=== PATIENT | male | born 1945 | race Caucasian/White ===

== ENCOUNTER → 2024-05-20 | Outpatient (CLI) | payer MEDICARE, OTHER, SELFPAY ==
[2024-05-20 11:34] LABS: Basophils % (Auto) 0 % (0-2.5); Eosinophils # (Auto) 0.2 Thou/mm3 (0.0-0.5); Eosinophils % (Auto) 3 % (0-10); Hematocrit 43.7 % (41.0-53.0); Hemoglobin 14.9 g/dL (13.5-16.0); Immature Granulocytes % (Auto) 0 % (0-0); Immature Granulocytes Auto 0.03 Thou/mm3 (0.00-0.00); Lymphocytes # (Auto) 1.9 Thou/mm3 (1.0-4.8); Lymphocytes % (Auto) 21 % (10-50); Mean Corpuscular HGB Conc 34.1 g/dl (31.0-37.0); Mean Corpuscular Hemoglobin 32.5 pg (25.0-35.0); Mean Corpuscular Volume 95 fL (80-100); Monocytes # (Auto) 0.8 Thou/mm3 (0.0-0.8); Monocytes % (Auto) 9 % (0-12); Neutrophils % (Auto) 67 % (37-80); Nucleated Red Blood Cell % 0 /100 WBC (0); Platelet Count 252 Thou/mm3 (140-440); RDW Standard Deviation 50.7 fL (35.1-43.9); Red Blood Count 4.59 Miln/mm3 (4.50-5.90)
[2024-05-20 11:44] LABS: Partial Thromboplastin Time 26.2 Seconds (22.0-36.0); Prothrombin Time 10.9 Seconds (9.0-12.2)
[2024-05-20 11:55] LABS: Alanine Aminotransferase 18 U/L (10-49); Albumin, Serum 4.3 gm/dL (3.4-4.8); Albumin/Globulin Ratio 1.8 (1.2-2.2); Alkaline Phosphatase 77 U/L (46-116); Anion Gap 6 (7-16); Aspartate Amino Transferase 19 U/L (0-34); BUN/Creatinine Ratio 16 Ratio (12-20); Bilirubin,Total 0.6 mg/dL (0.3-1.2); Blood Urea Nitrogen 22 mg/dL (9-23); Calcium 9.8 mg/dL (8.3-10.6); Calcium (Corrected) 9.8 mg/dL (8.5-10.1); Chloride 108 mMol/L (98-107); Creatinine (Component) 1.4 mg/dL (0.6-1.3); Globulin 2.4 gm/dL (2.3-3.5); Glucose 105 mg/dL (74-106); Osmolality,Calculated 278 (275-295); Potassium 4.8 mMol/L (3.4-5.1); Sodium 138 mMol/L (136-145); Total Protein 6.7 gm/dL (5.7-8.2); eGFR 52 See Note
== END | disposition home or self-care (01) ==
PROVIDERS: PCP Family Medicine; Referring Provider Internal Medicine Cardiovascular Disease; Visit Provider Physician Assistant
DX: Z01.818 Encounter for other preprocedural examination (principal); E78.00 Pure hypercholesterolemia, unspecified; R20.0 Anesthesia of skin; Z79.02 Long term (current) use of antithrombotics/antiplatelets
CPT/HCPCS: 36415; 80053; 85025; 85610; 85730

== ENCOUNTER → 2024-06-14 | Outpatient (CLI) | payer MEDICARE, OTHER, SELFPAY ==
[2024-06-14 09:01] LABS: Quantiferon-TB* See Sep Rpt
== END | disposition home or self-care (01) ==
LOC: COPL 08:11
PROVIDERS: PCP Internal Medicine; Referring Provider Physician Assistant; Visit Provider Physician Assistant
DX: Z20.1 Contact with and (suspected) exposure to tuberculosis (principal)
CPT/HCPCS: 86480

== ENCOUNTER → 2024-09-14 | Outpatient (CLI) | payer MEDICARE, OTHER, SELFPAY ==
--- NOTE | 2024-09-14 | XR_ITS ---
Examination: Lumbar spine, 5 views Technique: Lumbar spine AP, lateral, coned lateral lower lumbar spine, bilateral obliques 5 views Exam date and time: September 14, 2024 1206 hours INDICATIONS: Patient fell out of bed 2 weeks ago with injury to the lower back, lower back pain. FINDINGS: No acute lumbar fracture Advanced disc narrowing at the lower 3 lumbar levels Prominent lumbar spondylosis IMPRESSION: No acute lumbar fracture
--- NOTE | 2024-09-14 | XR_ITS ---
Examination: Thoracic spine 3 views Technique one AP lateral coned lateral upper dorsal spine 3 views Exam date and time: September 14, 2024 1207 hours INDICATIONS: Patient fell 2 weeks ago with injury to the back, back pain FINDINGS: Severe osteopenia No acute thoracic fracture Moderate thoracic spondylosis Moderate diffuse thoracic disc narrowing IMPRESSION: No acute thoracic fracture
--- NOTE | 2024-09-14 | XR_ITS ---
EXAMINATION: Cervical spine, 5 views Technique: Cervical spine AP, AP odontoid, lateral, bilateral obliques, 5 views Exam date and time: September 14, 2024 1159 hours Comparison June 14, 2018 INDICATIONS: Patient fell out of bed 2 weeks ago with injury to the neck, neck pain FINDINGS: Adequate alignment cervical vertebral bodies. No cervical fracture Prominent cervical spondylosis Cervical fusion C5-C6 Advanced degenerative disc disease C6-C7 Mild to moderate diffuse neural foraminal stenosis C3-C7 Soft tissue vascular carotid calcification IMPRESSION: No cervical fracture Advanced degenerative disc disease C6-C7
== END | disposition home or self-care (01) ==
PROVIDERS: PCP Family Medicine; Referring Provider Nurse Practitioner Family; Visit Provider Nurse Practitioner Family
DX: M50.323 Other cervical disc degeneration at C6-C7 level (principal); M48.061 Spinal stenosis, lumbar region without neurogenic claudication; M47.816 Spondylosis without myelopathy or radiculopathy, lumbar region; S29.9XXA Unspecified injury of thorax, initial encounter; S39.92XA Unspecified injury of lower back, initial encounter; S19.9XXA Unspecified injury of neck, initial encounter; W19.XXXA Unspecified fall, initial encounter
CPT/HCPCS: 72050; 72072; 72110

== ENCOUNTER → 2024-12-28 | Outpatient (CLI) | payer MEDICARE, OTHER, SELFPAY ==
[2024-12-28 11:12] LABS: Collection Type, Urine Clean Catch
[2024-12-28 12:11] LABS: Basophils % (Auto) 1 % (0-2.5); Eosinophils # (Auto) 0.5 Thou/mm3 (0.0-0.5); Eosinophils % (Auto) 6 % (0-10); Hematocrit 44.2 % (41.0-53.0); Hemoglobin 15.2 g/dL (13.5-16.0); Immature Granulocytes % (Auto) 0 % (0-0); Immature Granulocytes Auto 0.01 Thou/mm3 (0.00-0.00); Lymphocytes # (Auto) 1.8 Thou/mm3 (1.0-4.8); Lymphocytes % (Auto) 24 % (10-50); Mean Corpuscular HGB Conc 34.4 g/dl (31.0-37.0); Mean Corpuscular Hemoglobin 32.4 pg (25.0-35.0); Mean Corpuscular Volume 94 fL (80-100); Monocytes # (Auto) 0.6 Thou/mm3 (0.0-0.8); Monocytes % (Auto) 9 % (0-12); Neutrophils # (Auto) 4.4 Thou/mm3 (1.8-7.7); Neutrophils % (Auto) 60 % (37-80); Nucleated Red Blood Cell % 0 /100 WBC (0); Platelet Count 213 Thou/mm3 (140-440); RDW Standard Deviation 46.5 fL (35.1-43.9); Red Blood Count 4.69 Miln/mm3 (4.50-5.90); White Blood Count 7.4 Thou/mm3 (3.8-10.6)
[2024-12-28 12:18] LABS: Bilirubin,Urine Negative (Negative); Blood,Urine Trace (Negative); Clarity,Urine Clear (Clear/Hazy); Color,Urine Lt-Yellow (Lt Yel-Yel); Culture Indicated,Urine Not Indicated; Glucose, Urine Negative (Negative); Hyaline Casts,Urine < 1 /hpf (0-1); Ketones,Urine Negative (Negative); Leukocyte Esterase,Urine Negative (Negative); Nitrite,Urine Negative (Negative); Protein,Urine Trace (Neg - Trace); RBC,Urine 1 /hpf (0-3); Specific Gravity,Urine 1.024 (1.001-1.035); Squamous Epithelial Cell,Urine < 1 /hpf (0-5); Urobilinogen,Urine Negative mg/dL (0.0-1.0); WBC,Urine 1 /hpf (0-5)
[2024-12-28 12:25] LABS: Alanine Aminotransferase 12 U/L (10-49); Albumin, Serum 4.1 gm/dL (3.4-4.8); Albumin/Globulin Ratio 1.7 (1.2-2.2); Alkaline Phosphatase 83 U/L (46-116); Anion Gap 5 (7-16); Aspartate Amino Transferase 21 U/L (0-34); BUN/Creatinine Ratio 9 Ratio (12-20); Bilirubin,Total 0.5 mg/dL (0.3-1.2); Blood Urea Nitrogen 12 mg/dL (9-23); Calcium 8.9 mg/dL (8.3-10.6); Calcium (Corrected) 8.9 mg/dL (8.5-10.1); Carbon Dioxide 27.4 mMol/L (20.0-31.0); Cardiac Risk Estimate 4.2 RATIO (4.0-6.7); Chloride 108 mMol/L (98-107); Cholesterol 218 mg/dL (132-200); Creatinine (Component) 1.3 mg/dL (0.6-1.3); Globulin 2.4 gm/dL (2.3-3.5); Glucose 114 mg/dL (74-106); HDL Cholesterol 52 mg/dL (40-60); LDL Cholesterol,Calculated 125 mg/dL (0-130); Osmolality,Calculated 280 (275-295); Potassium 4.4 mMol/L (3.4-5.1); Sodium 140 mMol/L (136-145); Total Protein 6.5 gm/dL (5.7-8.2); Triglycerides 203 mg/dL (30-150); eGFR 56 See Note
[2024-12-28 12:27] LABS: Vitamin B12 292 pg/mL (211-911); Vitamin D 25 Hydroxy Total 22.3 ng/mL (7.3-40.2)
== END | disposition home or self-care (01) ==
LOC: COPL 10:37
PROVIDERS: PCP Physician Assistant; Referring Provider Physician Assistant; Visit Provider Physician Assistant
DX: E03.9 Hypothyroidism, unspecified (principal); E55.9 Vitamin D deficiency, unspecified; E78.5 Hyperlipidemia, unspecified; I10 Essential (primary) hypertension
CPT/HCPCS: 36415; 80053; 80061; 81001; 82306; 82607; 84153; 84443; 85025

== ENCOUNTER 2025-03-26 13:07 | Inpatient (IN) | payer MEDICARE, OTHER, SELFPAY ==
[2025-03-26] VITALS (7 sets, daily range): BP systolic 153–183; BP diastolic 74–91; PULSE 60–86; RESP 13–19; TEMP 36.6–37; O2SAT 95–99; BMI 34.9; BMI 35.2
--- NOTE | 2025-03-26 13:38 | XR_ITS ---
Examination: CT brain head without contrast. 2-D sagittal coronal reconstructions Date and time of exam:March 26, 2025, 1345 hrs. Indications: Stroke alert, onset focal neurologic deficit today. CTDI: vol (mGy):58.6. DLP: (mGycm):1229. Technique: Multiple CT axial sections of the brain have been obtained, 5 mm slice thickness. Contrast has not been administered. 2-D sagittal, coronal reconstructions have been obtained Low dose protocols were performed. One or more of the following dose reduction techniques were used; automated exposure control, adjustment of the mA and/or KV according to patient size, use of iterative reconstruction technique. Findings: No significant ventricular enlargement. Intra-axial or extra-axial hemorrhage density is not seen. No mass effect or midline shift Basal cisterns are not remarkable. Fourth ventricle is midline. Cranial vault intact. Impression: Negative for acute hemorrhage, mass effect or midline shift
--- NOTE | 2025-03-26 13:39 | XR_ITS ---
Examination: AP chest single view Technique one AP portable semiupright chest single view Date and time: March 26, 2025, 1405 hrs., Comparison October 26, 2023. Indications: Stroke alert today Findings: Moderate enlargement left ventricle. Moderate vascular congestion. No aspiration pneumonia. Moderate osteopenia. Impression: Negative for aspiration pneumonia
--- NOTE | 2025-03-26 13:39 | EKG_ITS ---
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1945 Requested By: Lamonte Reyna Order Number: [id number] Reading MD: Lamonte Reyna Measurements Intervals [place] Rate: 68 P: 65 AR: 172 QRS: -31 QRSD: 97 T: 5 QT: 402 QTc: 428 Interpretive Statements SINUS RHYTHM WITH OCCASIONAL ECTOPIC PREMATURE COMPLEXES LEFT AXIS DEVIATION [QRS AXIS < -30] LEFT VENTRICULAR HYPERTROPHY AND ST-T CHANGE [VOLTAGE CRITERIA PLUS ST/T ABNORMALITY] POSSIBLE ANTERIOR MYOCARDIAL INFARCTION , OF INDETERMINATE AGE [30 ms Q WAVE IN V3/V4, OR R < 0.2 mV IN V4] INFERIOR MYOCARDIAL INFARCTION , OF INDETERMINATE AGE [40+ ms Q WAVE AND/OR ST/T ABNORMALITY IN II/aVF] Compared to ECG 06/25/2023 08:26:48 ST (T wave) deviation now present Myocardial infarct finding now present Sinus bradycardia no longer present /store/S0/[id number]/[id number].pdf
--- NOTE | 2025-03-26 13:40 | EDNOTE_ITS ---
<Statement entered by Brianna Laird MD - 03/27/25 11:50> As co-signing physician, I was present and available for consult prn. I concur with the plan and care as documented by the midlevel provider. ED General RME/HPI General Chief complaint: Weakness Stated complaint: WEAKNESS Time Seen by Provider: 03/26/25 13:37 Arrival date/time: 03/26/25 13:0.7 CC: Right arm loss abuse and expressive aphasia HPI onset then lasting approximately 1 to 2 minutes with spontaneous resolution onset 40 minutes ago. Patient has a long history of strokes is not reliable at taking his aspirin daily by his own admission took aspirin just prior to EMS arrival EMS reported no symptoms. Patient is hypertensive but states he has not taken his hypertension medicine this morning as well. Currently patient is awake alert oriented baseline mildly slurred speech secondary to previous CVAs. Patient states he is back to his baseline at the time of exam. Patient complains of chronic back pain no other complaints at this time. Related Data Home Medications ?Medication ?Instructions ?Recorded ?Confirmed carvedilol 6.25 mg tablet 6.25 mg PO BID 11/29/1803/13 lisinopril 20 mg tablet 20 mg PO QDAY 05/30/1903/26 albuterol sulfate 90 mcg/actuation 2 puff inhalation Q 6HRPRN PRN 08/02/20 03/26/25 aerosol inhaler Shortness Of Breath famotidine 10 mg tablet 20 mg PO QDAY 08/02/2003/26 levothyroxine 150 mcg tablet 150 mcg PO QAM 09/27/20 0 03/26/25 amlodipine 10 mg tablet 25 mg PO QDAY 12/25/2003/26 memantine 10 mg tablet 5 mg PO DAILY 10/07/2203/26 tamsulosin 0.4 mg capsule 0.4 mg PO QDAY 03/24/2303/13 fluticasone propionate 50 1 spray intranasal QDAY 06/1203/26/25 mcg/actuation nasal spray,suspension aspirin 81 mg tablet,delayed 81 mg PO QDAY 12/29/23 release Allergies Allergy/AdvReac Type Severity Reaction Status Date / Time [id number] Reductase Allergy Severe AUTOIMMUNE Verified 04/26/24 10:32 Inhibitor BLOOD TOXICITY Review of Systems Review of Systems Narrative Review of Systems: GEN: No fever, no chills, no weight loss EYES: No discharge, no visual changes, no pain HEENT: No ear pain, no congestion, no sore throat PULM: No shortness of breath, no cough, no congestion CV: No chest pain, no dyspnea on exertion, no palpitations GI: No nausea, no vomiting, no diarrhea, no pain, no constipation : No frequency, no urgency, no dysuria MUSC/SKEL: No joint pain, no back pain SKIN: No rash PSYCH: No hallucinations, no depression HEME/LYMPH: No easy bleeding or bruising tendencies NEURO: Right upper extremity weakness expressive aphasia Past Medical History Past Medical History NEUROLOGIC: Positive Neurological Disorders and Cerebrovascular Accident (2020, DR Torres); Negative Seizures CARDIAC: Positive Cardiac Disorders, Myocardial Infarction, Angina, Coronary Artery Disease, Hypercholesterolemia, Hypertension and Hypotension; Negative Congestive Heart Failure, Edema, Cellulitis or Varicose Veins RESPIRATORY: Positive Asthma; Negative Chronic Obstructive Pulmonary Disease (COPD) GASTROINTESTINAL: Positive Gastrointestinal Disorders, Gall Bladder Disease, Hiatal Hernia, Gastroesophageal Reflux Disease and Obesity; Negative Hepatitis GENITOURINARY: Positive Genitourinary Disorders and Benign Prostatic Hyperplasia; Negative Renal Disease or Prostate Cancer REPRODUCTIVE: Positive Testicular Cancer MUSCULOSKELETAL: Positive Arthritis; Negative Musculoskeletal Disorders ENDOCRINE: Positive Endocrine Disorders, Hyperthyroidism and Hypothyroidism; Negative Diabetes Mellitus Type 1 or Diabetes Mellitus Type 2 HEMATOLOGIC: Negative Blood Disorders, Anemia or Sickle Cell Disease OTHER HISTORY: Positive Hospitalization ([place], [place]), Autoimmune Disease, Chicken Pox, Measles, Mumps and Testicular Cancer; Negative Shingles, Falls, Blood Transfusions, Anesthesia Reactions, Chemotherapy, Radiation Therapy, MRSA, Cancer or Prostate Cancer Family History FAMILY HISTORY: Positive Family Cardiac Disorders, Family Gastrointestinal Problems and Family Surgery; Negative Family Psychiatric Problems, Family Respiratory Disorders, Family Cancer or Family Anesthesia Reaction Surgical History SURGICAL: Positive Cardiac Surgery, Coronary Stent (2020), Angiogram (2020), Tonsillectomy and Abdominal Surgery; Negative Pacemaker Social History SMOKING STATUS: Never smoker SUBSTANCE USE: does not use ED Exam Narrative Physical exam: [General: Obese not in any acute distress Head normocephalic HEENT: Within acceptable limits Neck is supple nontender Chest equal chest rise nontender to palpation Respiratory: Clear to auscultation no wheezes crackles or rubs CV: Rate rhythm is regular no murmurs rubs or clicks Abdomen is distended secondary to body habitus soft nontender no masses positive bowel sounds all 4 quadrants Back: No CVA tenderness no spinous process tenderness from cervical spine thoracic and lumbar spine Skin: Intact no petechiae rash induration ulceration or crepitus Extremities: Full strength and range of motion of upper extremities. Moving all extremity against resistance cap refill less than 2 seconds neurosensory intact Neuro: Awake alert oriented x3 Glascow coma 15 no focal deficits] cranial nerves II through XII grossly intact. His name Course Course Course Narrative: Patient's case discussed with neurologist who was concerned this may be small focal seizures as he has had recurrent episodes of aphasia every 3 weeks plus or minus. Also mention to the patient does not reliable in taking his aspirin on a daily basis. At this point it was agreed that he should be admitted and be evaluated by Dr. Torres when on-call for seizure versus TIA versus CVA. Patient's case clinical findings diagnostics and imaging were discussed with Dr. Gayle resident for Dr. Palacios who agrees to accept the patient for admission. Quality Measures none Orders Category Date Time Status Bedside Blood Glucose NOW Care 03/26/25 13:39 Active COVID-19 Screening Questionnaire NOW Care 03/26/25 16:03 Active Assistance Coordinator NOW Care 03/26/25 13:39 Active Continuous Pulse Oximetry NOW Care 03/26/25 13:39 Completed Decision to Admit X1 Care 03/26/25 16:03 Active EKG (ED ONLY) *Do not use* NOW Care 03/26/25 13:39 Completed In and Out Catheter NEEDED Care 03/26/25 13:39 Active Insert IV NOW Care 03/26/25 13:39 Active NIH Stroke Scale now Care 03/26/25 13:39 Active NPO NOW Care 03/26/25 13:39 Active Nurse Swallow Screen x1 Care 03/26/25 13:39 Active Consult to Neurology / Tele-Neurology Routine Cons 03/26/25 13:[address] angio stroke protocol Stat Exams 03/26/25 13:[address] stroke protocol Stat Exams 03/26/25 13:38 Completed EKG (ED Only) Stat Exams 03/26/25 13:39 Draft XR chest 1V portable Stat Exams 03/26/25 13:39 Completed CBC Stat Lab 03/26/25 13:48 Completed Comprehensive Metabolic Panel Stat Lab 03/26/25 13:48 Completed Drug Screen,Urine Stat Lab 03/26/25 18:57 Completed HCG Titer if Positive Stat Lab 03/26/25 13:48 Completed Magnesium Stat Lab 03/26/25 13:48 Completed Partial Thromboplastin Time Stat Lab 03/26/25 13:48 Completed Prothrombin Time with INR Stat Lab 03/26/25 13:48 Completed Troponin I Stat Lab 03/26/25 13:48 Completed Urinalysis, C/S if Indicated Stat Lab 03/26/25 18:57 Completed Ondansetron Inj [Zofran Inj] Med 03/26/25 13:39 Active 4 mg IVP Q4HR PRN Oxygen Delivery NOW RT 03/26/25 13:39 Active Vital Signs Vital signs: Vital Signs Temperature 98.4 F 03/26/25 13:09 Pulse Rate 78 03/26/25 13:09 Respiratory Rate 19 03/26/25 13:09 Blood Pressure 153/74 H 03/26/25 13:09 Pulse Oximetry (%) 96 03/26/25 13:09 Oxygen Delivery Method Room Air 03/26/25 13:09 Discharge Plan Plan Patient Disposition: Admit Acute Care w/in Hospital Problem List Clinical Impression: CVA (cerebral vascular accident) MDM Clinical Information Provided by patient and EMS [facility] Meds/Rx Considered, not Ordered None Labs/Rad/Tests considered, not Ordered None Chronic Illness/Social Conditions which may negatively complicate care or outcome(s)-explain: CVA/aphasic EKG EKG Interpretation narrative: EKG performed at 1400 shows a ventricular rate of 68 SC interval 172 QRS of 97 QTc of 419 sinus rhythm left axis deviation Lab Interpretation Labs: interpreted by me Lab(s) interpretation(s): CBC shows no acute leukocytosis anemia thrombocytopenia Coags within acceptable limits CMP shows no significant electrolyte imbalances glucose of 137 no transaminitis or T. bili elevation Imaging Provider imaging interpretation(s): Chest x-ray as interpreted by me read by radiology as negative for any acute finding. CT per neurology is negative for any acute hemorrhagic issue. Radiology reports / interpretation(s): Patient to be admitted for CVA Medication Administration(s) Medication Administration History Acetaminophen (Acetaminophen 325 Mg Tablet) 650 mg PO Q6H PRN PRN Reason: Fever >100.1 Stop: 04/25/25 16:43 Albuterol (Albuterol Inh 8 Gm) 2 puff INH Q6HRRT PRN PRN Reason: SHORTNESS OF BREATH Stop: 04/26/25 08:14 Aspirin (Aspirin Ec 81 Mg Tabec) 81 mg PO DAILY [facility] Stop: 04/26/25 08:59 Last Admin: 03/27/25 09:34 Dose: 81 mg Documented By: SARAN Carvedilol (Carvedilol 3.125 Mg Tablet) 6.25 mg PO BIDWM LALO Stop: 04/26/25 08:59 Last Admin: 03/27/25 09:37 Dose: 6.25 mg Documented By: SARAN Labetalol HCl (Labetalol Inj 5 Mg/Ml Vial 20 Ml) 10 mg IVP Q2H PRN PRN Reason: sbp > 210 Stop: 03/27/25 18:22 Levothyroxine Sodium 125 mcg/ (Levothyroxine Sodium 50 mcg) 175 mcg PO ACBR [facility] Stop: 04/26/25 08:29 Last Admin: 03/27/25 09:34 Dose: 175 mcg Documented By: SARAN Lisinopril (Lisinopril 20 Mg Tablet) 20 mg PO QDAY [facility] Stop: 04/26/25 08:59 Last Admin: 03/27/25 09:35 Dose: 20 mg Documented By: SARAN Memantine (Memantine Hcl 5 Mg Tablet) 5 mg PO DAILY [facility] Stop: 04/26/25 08:59 Last Admin: 03/27/25 09:35 Dose: 5 mg Documented By: SARAN Ondansetron HCl (Ondansetron Inj 2 Mg/Ml Inj 2 Ml) 4 mg IVP Q4HR PRN PRN Reason: NAUSEA OR VOMITING Stop: 04/25/25 13:38 Sennosides (Senna Tablet) 1 tab PO QDAY PRN; Protocol PRN Reason: constipation Stop: 04/25/25 16:43 Tamsulosin HCl (Tamsulosin Hcl 0.4 Mg Capsule) 0.4 mg PO QDAY [facility] Stop: 04/26/25 08:59 Last Admin: 03/27/25 09:34 Dose: 0.4 mg Documented By: SARAN Discontinued Medications Clopidogrel Bisulfate (Clopidogrel Bisulfate 75 Mg Tablet) 75 mg PO DAILY [facility] Stop: 04/26/25 08:59 Labetalol HCl (Labetalol Inj 5 Mg/Ml Vial 20 Ml) 10 mg IVP X1 PRN PRN Reason: sbp > 210 Stop: 04/25/25 16:55 Levothyroxine Sodium (Levothyroxine Sodium 25 Mcg Tablet) 150 mcg PO QAM [facility] Stop: 04/26/25 08:59
--- NOTE | 2025-03-26 13:41 | PC.NURSE ---
Pt. here from home to CT, pt. states he was opening the blinds at home and states his right arm wouldn't work, pt. states right leg became weak, pt. states then he couldn't talk, pt. states he has history of strokes, pt.'s spouse called 911. Pt. states he feels better now. pt. taken straight to CT from ambulance bay.
--- NOTE | 2025-03-26 13:42 | PC.NURSE ---
Dr. Libby Fong on tele monitor.
--- NOTE | 2025-03-26 13:53 | PC.NURSE ---
Dr. Libby Fong states NIH of 0 and no CTA needed, Dr. Fong states he will call the ER [facility].
--- NOTE | 2025-03-26 14:00 | ESCONSULT_ITS ---
Tele Neuro Consultation Consultation Date 03/26/25 Most Recent Vital Signs Last Vital Signs Temp 98.4 F 03/26/25 13:09 Pulse 78 03/26/25 13:09 Resp 19 03/26/25 13:09 BP 153/74 H 03/26/25 13:09 Pulse Ox 96 03/26/25 13:09 O2 Del Method Room Air 03/26/25 13:09 Consultation Narrative [facility] Patient Name:???Thuan Gonzalez Date of :???1945 Identification Number:??? Date of Service:???03/26/2025 13:37:45 Diagnosis:?R47.01 - Aphasia Impression: ?79 year old male with episode of right upper extremity weakness along with aphasia. The patient notes intermittent issues with transient aphasia occurring once every 3 weeks or so. Current NIHSS is zero. CT Head is negative for hemorrhage. Symptoms not consistent with LVO. DDx including TIA, seizure (felt most likely), other focal cerebral disease. At this point given the frequent episodes I would recommend admission for MRI and EEG to determine optimum treatment moving forward. Our recommendations are outlined below. Recommendations: ? Stroke/Telemetry Floor ? Neuro Checks (Q4) ? Bedside Swallow Eval ? DVT Prophylaxis ? IV Fluids, Normal Saline ? Head of Bed 30 Degrees ? Euglycemia and Avoid Hyperthermia (PRN Acetaminophen) ? Initiate or continue Aspirin 81 MG daily ?MRI Brain. ?EEG. Sign Out: ? Discussed with Emergency Department Provider Advanced Imaging:Advanced Imaging Deferred because: Non-disabling symptoms as verified by the patient; no cortical signs so not consistent with LVO Stroke not suspected with clinical presentation and exam Metrics: Last Known Well: 03/26/2025 12:50:00 Dispatch Time: 03/26/2025 13:37:45 Arrival Time: 03/26/2025 13:07:00 Initial Response Time: 03/26/2025 13:40:54Symptoms: episode of right sided weakness and difficulty speaking. . Initial patient interaction: 03/26/2025 13:45:00 NIHSS Assessment Completed: 03/26/2025 13:51:07Patient is not a candidate for Thrombolytic. Thrombolytic Medical Decision: 03/26/2025 13:51:08Patient was not deemed candidate for Thrombolytic because of following reasons: Resolved symptoms . CT Head: I personally reviewed all the CT images that were available to me and it showed: no evidence of hemorrhage. Primary Provider Notified of Diagnostic Impression and Management Plan on: 03/26/2025 13:59:52 History of Present Illness:Patient is a 79 year old Male. Patient was brought by EMS for symptoms of episode of right sided weakness and difficulty speaking. . The patient went to open the blinds and he noted that his right arm was not working right. He also noted some difficulty walking and talking . About a minute later his arm improved. His speech also returned. The patient has had previous strokes which caused difficulty speaking. This last occurred about one year ago. He does have brief moments of aphasia lasting a few minutes which occurs about once every few weeks. ? Past Medical History: ?Hypertension ?Hyperlipidemia ?Stroke ?There is no history of Diabetes Mellitus Medications: No Anticoagulant use? Antiplatelet use:?Yes?asa Reviewed EMR for current medications Allergies:? Reviewed Social History: Smoking: No Family History: There is no family history of premature cerebrovascular disease pertinent to this consultation ROS : 14 Points Review of Systems was performed and was negative except mentioned in HPI. Past Surgical History: There Is No Surgical History Contributory To Today?s Visit ? Examination: BP(173/120),?Pulse(75), 1A: Level of Consciousness - Alert; keenly responsive?+ 0 1B: Ask Month and Age - Both Questions Right?+ 0 1C: Blink Eyes & Squeeze Hands - Performs Both Tasks?+ 0 2: Test Horizontal Extraocular Movements - Normal?+ 0 3: Test Visual [place] - No Visual Loss?+ 0 4: Test Facial Palsy (Use Grimace if Obtunded) - Normal symmetry?+ 0 5A: Test Left Arm Motor Drift - No Drift for 10 Seconds?+ 0 5B: Test Right Arm Motor Drift - No Drift for 10 Seconds?+ 0 6A: Test Left Leg Motor Drift - No Drift for 5 Seconds?+ 0 6B: Test Right Leg Motor Drift - No Drift for 5 Seconds?+ 0 7: Test Limb Ataxia (FNF/Heel-Ponce) - No Ataxia?+ 0 8: Test Sensation - Normal; No sensory loss?+ 0 9: Test Language/Aphasia - Normal; No aphasia?+ 0 10: Test Dysarthria - Normal?+ 0 11: Test Extinction/Inattention - No abnormality?+ 0 NIHSS Score:?0 Pre-Morbid Modified Zahira Scale: 0 Points = No symptoms at all Spoke with :?Dr. Hermosillo, ED physician This consult was conducted in real time using interactive audio and video technology. Patient was informed of the technology being used for this visit and agreed to proceed. Patient located in hospital and provider located at home/office setting. Patient is being evaluated for possible acute neurologic impairment and high probability of imminent or life-threatening deterioration. I spent total of 35 minutes providing care to this patient, including time for face to face visit via telemedicine, review of medical records, imaging studies and discussion of findings with providers, the patient and/or family. Dr Libby Lemons [facility] For Inpatient follow-up with [facility] physician please call [facility] at . As we are not an outpatient service for any post hospital discharge needs please contact the hospital for assistance. If you have any questions for the [facility] physicians or need to reconsult for clinical or diagnostic changes please contact us via [facility] at . Signature :?Libby Lemons ?
--- NOTE | 2025-03-26 14:02 | PC.NURSE ---
Pt. to room 6 and pt. spouse at bedside.
[2025-03-26 14:10] LABS: Basophils # (Auto) 0.0 Thou/mm3 (0.0-0.2); Basophils % (Auto) 1 % (0-2.5); Eosinophils # (Auto) 0.7 Thou/mm3 (0.0-0.5); Eosinophils % (Auto) 8 % (0-10); Hematocrit 46.1 % (41.0-53.0); Hemoglobin 15.8 g/dL (13.5-16.0); Immature Granulocytes Auto 0.02 Thou/mm3 (0.00-0.00); Lymphocytes # (Auto) 1.9 Thou/mm3 (1.0-4.8); Lymphocytes % (Auto) 22 % (10-50); Mean Corpuscular HGB Conc 34.3 g/dl (31.0-37.0); Mean Corpuscular Hemoglobin 33.1 pg (25.0-35.0); Mean Corpuscular Volume 96 fL (80-100); Monocytes # (Auto) 0.6 Thou/mm3 (0.0-0.8); Monocytes % (Auto) 7 % (0-12); Neutrophils # (Auto) 5.2 Thou/mm3 (1.8-7.7); Neutrophils % (Auto) 62 % (37-80); Nucleated Red Blood Cell # 0.00 Thou/mm3 (0.00-0.00); Nucleated Red Blood Cell % 0 /100 WBC (0); Platelet Count 207 Thou/mm3 (140-440); RDW Standard Deviation 49.3 fL (35.1-43.9); Red Blood Count 4.78 Miln/mm3 (4.50-5.90); White Blood Count 8.4 Thou/mm3 (3.8-10.6)
[2025-03-26 14:32] LABS: Alanine Aminotransferase 15 U/L (10-49); Albumin, Serum 4.1 gm/dL (3.4-4.8); Albumin/Globulin Ratio 1.6 (1.2-2.2); Alkaline Phosphatase 78 U/L (46-116); Anion Gap 10 (7-16); Aspartate Amino Transferase 22 U/L (0-34); BUN/Creatinine Ratio 7 Ratio (12-20); Bilirubin,Total 0.5 mg/dL (0.3-1.2); Blood Urea Nitrogen 9 mg/dL (9-23); Calcium 9.5 mg/dL (8.3-10.6); Calcium (Corrected) 9.5 mg/dL (8.5-10.1); Carbon Dioxide 24.4 mMol/L (20.0-31.0); Chloride 108 mMol/L (98-107); Creatinine (Component) 1.3 mg/dL (0.6-1.3); Estimated Creatinine Clearance 56.8 mL/min (>60); Globulin 2.5 gm/dL (2.3-3.5); Glucose 137 mg/dL (74-106); Magnesium 2.0 mg/dL (1.6-2.6); Osmolality,Calculated 283 (275-295); Potassium 3.8 mMol/L (3.4-5.1); Sodium 142 mMol/L (136-145); Total Protein 6.6 gm/dL (5.7-8.2); Troponin I < 0.020 ng/mL (0.0-0.045); eGFR 56 See Note
[2025-03-26 14:37] LABS: INR 1.0 (0.9-1.3); Partial Thromboplastin Time 25.0 Seconds (22.0-36.0); Prothrombin Time 11.0 Seconds (9.0-12.2)
--- NOTE | 2025-03-26 15:46 | ESHP_ITS ---
<Statement entered by Brigitte Ortega MD - 03/26/25 17:45> Patient is 79 yr male with PMH of CVA, CAD s/p 3 stents, BPH, HTN, HLD, asthma, prostate adenocarcinoma who presented to [facility] on 03/26/25 due to expressive aphasia and right are weakness. Onset was about 1hr before coming to hospital and lasted for 1-2 minutes. Patient has aphasia episodes every 3 weeks but resolve quickly. Duration was longer this time which promted the ED visit. States that he is intermittently adherent with aspirin therapy. He has a hard timing remembering. When symptoms started at home, he took load dose. States that statin medications have be intolerable in the past. BP at home read 200/105. Teleneuro consulted--said to admit for stroke workup and rule out seizures. NIHSS score 0, CT Head is negative for hemorrhage. Admit for CVA workup and siezures. Symptoms have since resolved. Echo, CTA head neck, MRI brain, PT, speech, in house neuro recs pending. Allow for permissive HTN. The patient's management plan was discussed with my attending physician Dr. Palacios. Brigitte Ortega, PGY-2 Documentation for date of: 03/26/25 HPI History of Present Illness Chief complaint: Weakness History of present illness: This is a 79 yom with a pmh of CVA, CAD, HTN, and HLD who presented to the ED after experiencing an episode of expressive aphasia and right arm paralysis for 1-2 minutes. His prior stroke left him mildly aphasic, but during this episode he was unable to speak. He also notes his home BP reading was 200/105 and he took one of his antihypertensives. He is prescribed daily aspirin 81 mg but notes that he sometimes forgets to take it. He forgot to take it this morning. After his symptoms subsided, he took 325 mg of his aspirin prior to coming to the ED. He denies visual changes, LOC, difficulty swallowing, chest pain, palpitations and urinary problems. Medical History: HTN BPH Prior CVA, follows with Dr. Torres. Asthma, has never needed systemic steriods. HLD CAD, 3 stents, last in 2022, follows with Dr. Felton in [place]. Surgical History: Appendectomy 06/26/2023 Cholecystectomy Tosilectomy Coronary angiography with stent placement, 2022 Social History: Prior h/o tobacco use, quit 30 years ago. Drinks 1-2 beverages with dinner nightly. Has never withdrawn from alcohol in the past. Denies recreational drug use. Lives at home with his . Is a musician, plays the keyboard and sings. Review of Systems Review of Systems Systems Reviewed: All systems reviewed, normal except as documented Exam Vital Signs Temp Pulse Resp BP Pulse Ox O2 Del Method 98.2 F 66 13 162/82 H 96 Room Air 03/26/25 14:24 03/26/25 14:24 03/26/25 14:24 03/26/25 14:24 03/26/25 14:24 03/26/25 14:24 Narrative Exam General: Patient appears stated age, conversational, no acute distress, HEENT: No JVD noted. Mucosa moist. Pupils are equal and reactive to light bilaterally Cardiovascular: Normal S1 and S2. Regular rate and rhythm. No murmur appreciated Respiratory: Clear to auscultation bilaterally without wheezes or crackles. Abdomen: Soft, nontender, not distended, Skin: Dry, no rashes or bruising Musculoskeletal: No gross injuries. Able to move all 4 extremities. Non edematous lower extremities. Neuro: Alert and oriented x3. CN III-XII intact. B/L upper and lower extremities with intact strength and sensation. Finger to nose test intact. Negative pronater drift. Able to perfrom heal to quinones test. Psych: Normal affect and mood Results: Labs 03/27/25 04:49 03/27/25 04:49 Labs: Short CBC 03/26/25 Range/Units 13:48 WBC 8.4 (3.8-10.6) Thou/mm3 Hgb 15.8 (13.5-16.0) g/dL Hct 46.1 (41.0-53.0) % Plt Count 207 (140-440) Thou/mm3 BMP 03/26/25 13:48 Sodium 142 Potassium 3.8 Chloride 108 H Carbon Dioxide 24.4 BUN 9 Creatinine 1.3 Glucose 137 H Calcium 9.5 Cardiac Enzymes 03/26/25 Range/Units 13:48 Troponin I < 0.020 (0.0-0.045) ng/mL Liver Function 03/26/25 Range/Units 13:48 Total Bilirubin 0.5 (0.3-1.2) mg/dL AST 22 (0-34) U/L ALT 15 (10-49) U/L Alkaline Phosphatase 78 (46-116) U/L Albumin 4.1 (3.4-4.8) gm/dL Quality Measures Quality Measures VTE prophylaxis Advance care planning discussed with:: patient Medications Home Medications and Allergies Home Medications ?Medication ?Instructions ?Recorded ?Confirmed ?Type carvedilol 6.25 mg tablet 6.25 mg PO BID 11/29/1803/13 History lisinopril 20 mg tablet 20 mg PO QDAY 05/30/1903/26 History albuterol sulfate 90 mcg/actuation 2 puff inhalation Q 6HRPRN PRN 08/02/20 03/26/25 History aerosol inhaler Shortness Of Breath famotidine 10 mg tablet 20 mg PO QDAY 08/02/2003/26 History levothyroxine 150 mcg tablet 150 mcg PO QAM 09/27/20 0 03/26/25 History amlodipine 10 mg tablet 25 mg PO QDAY 12/25/2003/26 History memantine 10 mg tablet 5 mg PO DAILY 10/07/2203/26 History tamsulosin 0.4 mg capsule 0.4 mg PO QDAY 03/24/2303/13 History fluticasone propionate 50 1 spray intranasal QDAY 06/1203/26/25 History mcg/actuation nasal spray,suspension aspirin 81 mg tablet,delayed 81 mg PO QDAY 12/29/23 History release Allergies Allergy/AdvReac Type Severity Reaction Status Date / Time [id number] Reductase Allergy Severe AUTOIMMUNE Verified 04/26/24 10:32 Inhibitor BLOOD TOXICITY Visit Medications Ondansetron HCl (Ondansetron Inj 2 Mg/Ml Inj 2 Ml) 4 mg IVP Q4HR PRN PRN Reason: NAUSEA OR VOMITING Stop: 04/25/25 13:38 Assessment & Plan Plan 79 yom with a h/o htn, prior cva, and poor adherance to medication presents with 1-2 minutes of complete aphasia and right sided arm weakness who was admitted for stroke workup and to rule out seizure activity. #Aphasia #TIA #Seizure rule out Patient presenting with transient expressive aphasia and right arm paralysis that lasted 1-2 minutes with complete resolution. Has had recurrent episodes mild aphasia in the past that would resolve on their own, but today was the worst one. Inconsistently takes his aspirin 81 mg but took a 325 loading dose prior to coming to the ED today. Imaging studies were negative and labs were unremarkable. This is likely a TIA, but seizure should be ruled out due to episodic nature of the aphasia and history of prior CVA. - Admit Stroke/Telemetry floor -Neuro checks q4h -MRI brain w/o contrast -TTE with bubble study -EEG -Telemetry monitoring -Lipid panel, HgbA1c, TSH -PT/OT eval, -NPO pending swallow eval. -Permissive HTN unless SBP >220 or DBP >120 mg -Daily aspirin 81 mg #HTN Chronic, but sounds like inadequate control due to patient reported limited adherence. Home BP was 200/105 prior to coming to the ED today. He took his BP medication prior to arrival in the ED. Highest read was 162/82. -Hold home meds until stroke workup complete. #HLD Prior diagnosis, had prior adverse drug reaction to statin medication. Not on a lipid lowering medication at this time. -Lipid panel pending. #CAD Stable, has had 3 stents in the past, last one in [address] Felton in [place]. -resume aspirin Attending Provider Attestation/Addendum I have discussed and was present for the essential components of the history, physical examination, diagnosis, and treatment plan with the resident. I agree with the patient's care as documented by the resident and amended herein by me. Jose Palacios DO. Although this document has been carefully reviewed, there may still be some phonetic and other typographical errors. These errors are purely grammatical due to imperfections in the software program and should not be construed in any way to compromise the substance of the patient's medical care during this visit.
--- NOTE | 2025-03-26 16:50 | ECHO_ITS ---
Transthoracic Echo Report Ht (in): 69 Wt (lb): 239 Exam Location: Echo Lab Status: Preadmit Agriculture Worker: Roxanne Lujan Indications: Procedure Performed: BP: 160 / 81 HR: 81 Technical Quality: Technically difficult study MEASUREMENTS (Male / Female) Normal Values 2D ECHO LV Diastolic Diameter PLAX 5.0 cm 4.2 - 5.9 / 3.9 - 5.3 cm LV Systolic Diameter PLAX 3.3 cm IVS Diastolic Thickness 1.1 cm 0.6 - 1.0 / 0.6 - 0.9 cm LVPW Diastolic Thickness 1.1 cm 0.6 - 1.0 / 0.6 - 0.9 cm LV Relative Wall Thickness 0.4 LVOT Diameter 2.2 cm Aortic Root Diameter 2.5 cm LA Systolic Diameter LX 3.5 cm 3.0 - 4.0 / 2.7 - 3.8 cm LV Ejection Fraction MOD BP 55.6 % >= 55 % LV Cardiac Index MOD BP 1922.9 cm?/min?m? LV Ejection Fraction MOD 4C 55.7 % LV Cardiac Index MOD 4C 2006.0 cm?/min?m? LV Ejection Fraction 4C AL 56.2 % LV Cardiac Index 4C AL 2109.1 cm?/min?m? LV Ejection Fraction MOD 2C 57.4 % LV Cardiac Index MOD 2C 1877.8 cm?/min?m? LV Ejection Fraction 2C AL 57.5 % LV Cardiac Index 2C AL 1947.7 cm?/min?m? Ascending Aorta Diameter 2.8 cm DOPPLER AV Peak Velocity 139.0 cm/s AV Peak Gradient 7.7 mmHg AV Mean Gradient 3.0 mmHg AV Velocity Time Integral 29.5 cm AI Peak Velocity 206.0 cm/s AI Peak Gradient 17.0 mmHg AI Pressure Half Time 1339.0 ms LVOT Peak Velocity 140.0 cm/s LVOT Peak Gradient 7.8 mmHg LVOT Velocity Time Integral 29.3 cm LVOT Cardiac Index 3858.9 cm?/min?m? AV Area Cont Eq vti 3.8 cm? AV Area Cont Eq pk 3.8 cm? MV Area PHT 4.2 cm? MR Peak Velocity 331.0 cm/s MR Peak Gradient 43.8 mmHg Mitral E Point Velocity 66.5 cm/s Mitral A Point Velocity 113.0 cm/s Mitral E to A Ratio 0.6 LV E' Lateral Velocity 7.8 cm/s Mitral E to LV E' Lateral Ratio 8.5 LV E' Septal Velocity 4.7 cm/s Mitral E to LV E' Septal Ratio 14.2 PV Peak Velocity 125.0 cm/s PV Peak Gradient 6.3 mmHg FINDINGS Left Ventricle Normal left ventricular size and systolic function with no obvious regional wall motion abnormalities. Midl LVH. The ejection fraction is visually estimated at 55-60%. There is grade I diastolic dysfunction of the left ventricle (impaired relaxation pattern). Right Ventricle The right ventricle is normal in size and systolic function. Left Atrium The left atrium is normal by two-dimensional, color flow and Doppler imaging with no structural abnormalities, no thrombus formation present. Right Atrium The right atrium is normal by two-dimensional imaging, color flow and Doppler imaging with no structural abnormalities, no thrombus formation present. Atrial Septum The interatrial septum appears normal with no evidence of a shunt. Aorta The aorta is normal by two-dimensional, color flow and Doppler interrogation. Mitral Valve The mitral valve is normal by two-dimensional, color flow and Doppler interrogation. Mild mitral regurgitation. Aortic Valve The aortic valve is trileaflet and normal by two-dimensional, color flow and Doppler interrogation. Mild aortic valve regurgitation. Tricuspid Valve The tricuspid valve is normal by two-dimensional, color flow and Doppler interrogation. There is trace tricuspid valve regurgitation. Pulmonic Valve The pulmonic valve is not well visualized. There is no significant pulmonic valve regurgitation. Vessels The pulmonary artery appears normal. The inferior vena cava pulmonary and hepatic veins appear normal. Pericardium The pericardium is normal by two-dimensional imaging. There is no significant pericardial effusion. CONCLUSIONS Indication: Stroke Normal-sized cardiac chambers. Normal-sized left ventricle with excellent left ventricle systolic function normal wall motion ejection fraction 65%. Normal right atrium right ventricle and normal RV function. Aortic valve thickening with mild aortic valve regurgitation. Mild mitral valve regurgitation. No evidence of intracardiac thrombi no evidence of cardiac shunts. Bubble study not performed, not indicated at the age of 79 No cardiac source of thromboembolism. Tiana Amin (Electronically Signed) Final Date: 28 March 2025 17:58
[2025-03-26 19:30] LABS: Collection Type, Urine Clean Catch; Squamous Epithelial Cell,Urine 0 /hpf (0-5)
[2025-03-26 19:44] LABS: Bilirubin,Urine Negative (Negative); Blood,Urine Negative (Negative); Clarity,Urine Clear (Clear/Hazy); Color,Urine Lt-Yellow (Lt Yel-Yel); Culture Indicated,Urine Not Indicated; Glucose, Urine Negative (Negative); Ketones,Urine Negative (Negative); Leukocyte Esterase,Urine Negative (Negative); Nitrite,Urine Negative (Negative); PH,Urine 6.5 (5.0-7.0); Protein,Urine Trace (Neg - Trace); RBC,Urine 4 /hpf (0-3); Specific Gravity,Urine 1.023 (1.001-1.035); Urobilinogen,Urine Negative mg/dL (0.0-1.0); WBC,Urine 1 /hpf (0-5)
[2025-03-26 19:51] LABS: Amphetamine/Methamp Scrn,U Negative (Negative); Barbiturate Screen,Urine Negative (Negative); Benzodiazepines Screen,Urine Negative (Negative); Benzoylecgonine Screen, Ur Negative (Negative); Fentanyl Screen,Urine Negative (Negative); Opiate Screen,Urine Negative (Negative); THC Screen,Urine Negative (Negative)
[2025-03-27] VITALS (11 sets, daily range): BP systolic 123–173; BP diastolic 67–91; PULSE 55–86; RESP 17–97; TEMP 36.1–36.6; O2SAT 94–99; BMI 35.4
--- NOTE | 2025-03-27 | XR_ITS ---
Examinations: MRI Brain without intravenous contrast. MRA brain without intravenous contrast. MRA carotids without intravenous contrast 3-D vascular reconstructions Date and time of exam: March 27, 2025 0818 hours INDICATIONS: Stroke alert March 26, 2025, onset focal neurologic deficit, expressive aphasia and right arm weakness Technique: Multiple axial and sagittal images of the brain have been obtained MRA brain carotid images without contrast obtained, including 3-D postprocessing, vascular maximum intensity projection images Findings: Sellaturcica is not enlarged. The optic chiasm and infundibular stalk are not remarkable. Prepontine and interpeduncular cisterns are not enlarged. No localized enlargement of the medulla or selvin. Fourth ventricle and cerebellar tonsils normal in position. Subacute hemorrhage is not seen. Fourth ventricle is midline. Mass in the cerebellopontine angle region is not evident. 7th and 8th nerve complexes exhibits symmetry. Globes are symmetrical with no retro-orbital mass. Increased white matter signal moderate Diffusion-weighted images demonstrate 4 mm focus restricted diffusion left frontal white matter image 14 with possible signal deficit on the ADC map Mass-effect upon the ventricular system is not identified. MRA brain no filling of the left middle cerebral artery vessels. MRA carotid images degraded by patient motion Impression: No filling of left middle cerebral artery branches on the MRA cerebral images 4 mm restricted focus of diffusion in the left frontal white matter with possible signal deficit on the ADC map Recommend neurology consultation and correlation with clinical findings
[2025-03-27 05:14] LABS: Basophils # (Auto) 0.0 Thou/mm3 (0.0-0.2); Basophils % (Auto) 1 % (0-2.5); Eosinophils # (Auto) 0.6 Thou/mm3 (0.0-0.5); Eosinophils % (Auto) 8 % (0-10); Hematocrit 44.1 % (41.0-53.0); Hemoglobin 15.1 g/dL (13.5-16.0); Immature Granulocytes Auto 0.03 Thou/mm3 (0.00-0.00); Lymphocytes # (Auto) 1.7 Thou/mm3 (1.0-4.8); Lymphocytes % (Auto) 22 % (10-50); Mean Corpuscular HGB Conc 34.2 g/dl (31.0-37.0); Mean Corpuscular Hemoglobin 33.2 pg (25.0-35.0); Mean Corpuscular Volume 97 fL (80-100); Monocytes # (Auto) 0.7 Thou/mm3 (0.0-0.8); Monocytes % (Auto) 9 % (0-12); Neutrophils # (Auto) 4.8 Thou/mm3 (1.8-7.7); Neutrophils % (Auto) 61 % (37-80); Nucleated Red Blood Cell # 0.00 Thou/mm3 (0.00-0.00); Nucleated Red Blood Cell % 0 /100 WBC (0); Platelet Count 185 Thou/mm3 (140-440); RDW Standard Deviation 48.9 fL (35.1-43.9); Red Blood Count 4.55 Miln/mm3 (4.50-5.90); White Blood Count 7.9 Thou/mm3 (3.8-10.6)
[2025-03-27 05:32] LABS: Alanine Aminotransferase 14 U/L (10-49); Albumin, Serum 3.7 gm/dL (3.4-4.8); Albumin/Globulin Ratio 1.6 (1.2-2.2); Alkaline Phosphatase 71 U/L (46-116); Anion Gap 9 (7-16); Aspartate Amino Transferase 21 U/L (0-34); BUN/Creatinine Ratio 8 Ratio (12-20); Bilirubin,Total 0.8 mg/dL (0.3-1.2); Blood Urea Nitrogen 10 mg/dL (9-23); Calcium 9.0 mg/dL (8.3-10.6); Calcium (Corrected) 9.2 mg/dL (8.5-10.1); Carbon Dioxide 25.9 mMol/L (20.0-31.0); Cardiac Risk Estimate 4.5 RATIO (4.0-6.7); Chloride 108 mMol/L (98-107); Cholesterol 215 mg/dL (132-200); Creatinine (Component) 1.2 mg/dL (0.6-1.3); Estimated Creatinine Clearance 61.6 mL/min (>60); Globulin 2.3 gm/dL (2.3-3.5); Glucose 101 mg/dL (74-106); HDL Cholesterol 48 mg/dL (40-60); LDL Cholesterol,Calculated 136 mg/dL (0-130); Magnesium 1.9 mg/dL (1.6-2.6); Osmolality,Calculated 283 (275-295); Phosphorous 2.6 mg/dL (2.4-5.1); Potassium 4.1 mMol/L (3.4-5.1); Sodium 143 mMol/L (136-145); Thyroid Stimulating Hormone 4.05 uIU/mL (0.55-4.78); Total Protein 6.0 gm/dL (5.7-8.2); Triglycerides 155 mg/dL (30-150); eGFR > 60 See Note
--- NOTE | 2025-03-27 09:26 | ESPR_ITS ---
<Statement entered by Brigitte Ortega MD - 03/27/25 15:09> Patient admitted for CVA workup after findings of expressive aphasia and right arm weakness. No events overnight. Patient examined at bedside. Right arm weakness has resolved. BP 160/80 for permissive hypertension. Resume anti hypertensives now--Coreg 6.25 mg BID and lisinopril 20mg daily. Labs significant for elevated TAG 155, Cholesterol 215, LDL 136. Patient should be on moderate intensity statin. However, he does have history of strong reaction with myopathys and unable to tolerate. Therefore will start alternative agent at discharge. MRI brain showed no filling of left MCA branches on the MRA cerebral images. Speech, PT, echo, EEG and neurology recommendations are pending. Continue aspirin 81mg daily. The patient's management plan was discussed with my attending physician Dr. Palacios. Brigitte Ortega, PGY-2 Documentation for date of: 03/27/25 Subjective Subjective Interval history: Patient examined at bedside. Passed Swallow evaluation last night, started on regular diet. Patient feels like he is back at his baseline today. MRA showed no filling of the left middle cerebral artery branches but not with expected ischemic change on MRI that would corroborate this finding. Per neurology recommendations, CTA of the head and neck is not necessary at this time given the patient's symptoms have completely resolved. He should be on a statin due to uncontrolled HLD on labs and high risk of recurrent stroke, but cannot tolerate due to adverse drug reaction. Will consider evolocumab infusion outpatient. Exam Vital Signs Temp Pulse Resp BP Pulse Ox O2 Del Method 97.8 F 62 18 164/91 H 96 Room Air 03/27/25 04:00 03/27/25 04:00 03/27/25 04:00 03/27/25 04:00 03/27/25 04:00 03/27/25 04:00 Narrative Exam General: Patient appears stated age, conversational, no acute distress, HEENT: No JVD noted. Mucosa moist. Pupils are equal and reactive to light bilaterally Cardiovascular: Normal S1 and S2. Regular rate and rhythm. No murmur appreciated Respiratory: Clear to auscultation bilaterally without wheezes or crackles. Abdomen: Soft, nontender, not distended, Skin: Dry, no rashes or bruising Musculoskeletal: No gross injuries. Able to move all 4 extremities. Non edematous lower extremities. Neuro: Alert and oriented x3. CN III-XII grossly intact. B/L upper and lower extremities with intact strength and sensation. Patient walking without difficulty. Psych: Normal affect and mood Objective Labs 03/27/25 04:49 03/27/25 04:49 Labs: Laboratory Results - last 24 hr 03/26/25 03/26/25 03/27/25 13:48 18:57 04:49 WBC 8.4 7.9 RBC 4.78 4.55 Hgb 15.8 15.1 Hct 46.1 44.1 MCV 96 97 MCH 33.1 33.2 MCHC 34.3 34.2 RDW Std Deviation 49.3 H 48.9 H Plt Count 207 185 Neut % (Auto) 62 61 Lymph % (Auto) 22 22 Tyrrell % (Auto) 7 9 Eos % (Auto) 8 8 Baso % (Auto) 1 1 Neut # (Auto) 5.2 4.8 Lymph # (Auto) 1.9 1.7 Tyrrell # (Auto) 0.6 0.7 Eos # (Auto) 0.7 H 0.6 H Baso # (Auto) 0.0 0.0 Immature Gran # (Auto) 0.02 H 0.03 H Absolute Nucleated RBC 0.00 0.00 Immature Gran % 0 0 Nucleated RBC % 0 0 PT 11.0 INR 1.0 APTT 25.0 Sodium 142 143 Potassium 3.8 4.1 Chloride 108 H 108 H Carbon Dioxide 24.4 25.9 Anion Gap 10 9 BUN 9 10 Creatinine 1.3 1.2 Estim Creat Clear Calc 56.8 L 61.6 eGFR 56 L > 60 BUN/Creatinine Ratio 7 L 8 L Glucose 137 H 101 Calculated Osmolality 283 283 Calcium 9.5 9.0 Corrected Calcium 9.5 9.2 Phosphorus 2.6 Magnesium 2.0 1.9 Total Bilirubin 0.5 0.8 AST 22 21 ALT 15 14 Alkaline Phosphatase 78 71 Troponin I < 0.020 Total Protein 6.6 6.0 Albumin 4.1 3.7 Globulin 2.5 2.3 Albumin/Globulin Ratio 1.6 1.6 Triglycerides 155 H Cholesterol 215 H LDL Cholesterol, Calc 136 H HDL Cholesterol 48 Cholesterol/HDL Ratio 4.5 TSH 4.05 Ur Collection Type Clean Catch Urine Color Lt-Yellow Urine Clarity Clear Urine pH 6.5 Ur Specific Shell 1.023 Urine Protein Trace Urine Glucose (UA) Negative Urine Ketones Negative Urine Blood Negative Urine Nitrite Negative Urine Bilirubin Negative Urine Urobilinogen (Auto) Negative Ur Leukocyte Esterase Negative Urine RBC 4 H Urine WBC 1 Ur Squamous Epith Cells 0 Urine Bacteria None Ur Culture Indicated? Not Indicated Urine Opiates Screen Negative Urine Fentanyl Screen Negative Ur Barbiturates Screen Negative U Amphetamin/Meth Scrn Negative U Benzodiazepines Scrn Negative U Cocaine Metab Screen Negative U Marijuana (THC) Screen Negative HCG (Qual) Not Performed. Quality Measures Quality Measures VTE prophylaxis Advance care planning discussed with:: patient Assessment & Plan Assessment Current Active Medications: Generic Name Dose Route Start Last Admin Trade Name Freq PRN Reason Stop Dose Admin Acetaminophen 650 mg 03/26/25 16:44 Acetaminophen 325 Mg Tablet PO 04/25/25 16:43 Q6H PRN Fever >100.1 Albuterol 2 puff 03/27/25 08:15 Albuterol Inh 8 Gm INH 04/26/25 08:14 Q6HRRT PRN SHORTNESS OF BREATH Aspirin 81 mg 03/27/25 09:00 Aspirin Ec 81 Mg Tabec PO 04/26/25 08:59 DAILY [facility] Carvedilol 6.25 mg 03/27/25 09:00 Carvedilol 3.125 Mg Tablet PO 04/26/25 08:59 BIDWM LALO Labetalol HCl 10 mg 03/26/25 18:23 Labetalol Inj 5 Mg/Ml Vial 20 Ml IVP 03/27/25 18:22 Q2H PRN sbp > 210 Levothyroxine Sodium 125 mcg/ 175 mcg 03/27/25 08:30 Levothyroxine Sodium 50 mcg PO 04/26/25 08:29 ACBR LALO Lisinopril 20 mg 03/27/25 09:00 Lisinopril 20 Mg Tablet PO 04/26/25 08:59 QDAY LALO Memantine 5 mg 03/27/25 09:00 Memantine Hcl 5 Mg Tablet PO 04/26/25 08:59 DAILY [facility] Ondansetron HCl 4 mg 03/26/25 13:39 Ondansetron Inj 2 Mg/Ml Inj 2 Ml IVP 04/25/25 13:38 Q4HR PRN NAUSEA OR VOMITING Sennosides 1 tab 03/26/25 16:44 Senna Tablet PO 04/25/25 16:43 QDAY PRN constipation Protocol Tamsulosin HCl 0.4 mg 03/27/25 09:00 Tamsulosin Hcl 0.4 Mg Capsule PO 04/26/25 08:59 QDAY LALO Plan 79 yom with a h/o htn, prior cva, and poor adherance to medication presents with 1-2 minutes of complete aphasia and right sided arm weakness who was admitted for stroke workup and to rule out seizure activity. #Aphasia #TIA #Seizure rule out Patient presenting with transient expressive aphasia and right arm paralysis that lasted 1-2 minutes with complete resolution. Has had recurrent episodes mild aphasia in the past that would resolve on their own, but today was the worst one. Inconsistently takes his aspirin 81 mg but took a 325 loading dose prior to coming to the ED today. Imaging studies were negative and labs were unremarkable. This is likely a TIA, but seizure should be ruled out due to episodic nature of the aphasia and history of prior CVA. MRA/MRI findings were discussed with neurology, will not pursue CTA of the head and neck at this time given the patient remains clinically stable and is at his baseline. - Admit Stroke/Telemetry floor -Neuro checks q4h -MRI brain w/o contrast/MRA: MRA shows no filling of the left middle cerebral artery branches, 4 mm restricted focus of diffusion in the left frontal white matter with possible deficit on the ADC map. -TTE with bubble study pending -EEG pending -Telemetry monitoring - HgbA1c pending -passed swallow eval, cardiac diet. -Permissive HTN unless SBP >220 or DBP >120 mg -Daily aspirin 81 mg -Should be on a statin but cannot tolerate. See below. Neurology considering evolocumab infusion outpatient. #HTN Chronic, but sounds like inadequate control due to patient reported limited adherence. Home BP was 200/105 prior to coming to the ED today. He took his BP medication prior to arrival in the ED. Highest read was 162/82. -Hold home meds until stroke workup complete. #HLD Prior diagnosis, had prior adverse drug reaction to statin medication. Not on a lipid lowering medication at this time. Currently uncontrolled, TAGS 155, cholesterol 215, LDL 136, and HDL 48. Should be on a statin but cannot tolerate. -Neurology considering evolocumab as possible alternative. #CAD Stable, has had 3 stents in the past, last one in [address] Felton in [place]. -resume aspirin Health Maintenance: DVT prophylaxis: SCDs Diet: regular Sanchez: No Lines: PIV CODE STATUS: DNR Disposition:DC pending EEG and US Patient's plan and care discussed with my attending, Dr. Suzanne DO. Ck Riley DO PGY-1 ([facility] Resident) Attending Provider Attestation/Addendum I have discussed and was present for the essential components of the history, physical examination, diagnosis, and treatment plan with the resident. I agree with the patient's care as documented by the resident and amended herein by me. Jose Palacios DO. Although this document has been carefully reviewed, there may still be some phonetic and other typographical errors. These errors are purely grammatical due to imperfections in the software program and should not be construed in any way to compromise the substance of the patient's medical care during this visit.
[2025-03-27] MEDS: LEVOTHYROXINE SODIUM 125 MCG, LEVOTHYROXINE SODIUM 50 MCG 175 MCG PO (09:34)
[2025-03-27] MEDS: ASPIRIN EC 81 MG TABEC PO (09:34)
[2025-03-27] MEDS: TAMSULOSIN HCL 0.4 MG CAPSULE PO (09:34)
[2025-03-27] MEDS: MEMANTINE HCL 5 MG TABLET PO (09:35)
--- NOTE | 2025-03-27 14:00 | PC.SS ---
Rounding Note: Pending EEG and Echo. Neurology recommendations pending.
--- NOTE | 2025-03-27 15:11 | PC.PT ---
Patient was xI with bed mobility, transfers, and ambulation with no AD. Patient is safe to ambulate to the bathroom and in the halls with no AD or staff. RN made aware.
--- NOTE | 2025-03-27 15:48 | ESCONSULT_ITS ---
HPI Data of Consult Requesting Physician: Heri Matos MD Admitting Provider: Nael Palacios DO Attending Provider: Heri Matos MD Primary Care Provider: Bahrath Ervin MD Consult Narrative History of present illness: Thuan is a 79 yr male with PMH of CVA, CAD s/p 3 stents, BPH, HTN, HLD, asthma, prostate adenocarcinoma who comes in for an evaluation of expressive aphasia and right are weakness. Onset was about 1hr before coming to hospital and lasted for 1-2 minutes. Patient reports never having symptoms the symptoms before, however endorses some right upper extremity weakness at times. He denies any associate symptoms of chest pain, shortness of breath, headache, or confusion. He says that he takes aspirin at home, however does not take a statin as he had apparently an allergic reaction in his left lower extremity about 10 to 15 years ago. He says that he has tried multiple statins, however his most recent one that he use although he does not remember the name, says that it gave him some muscle pains but he is open to trying a statin again. He says that his carbon blocks press operator is Dr. Felton and he has had 3 stents put in before, however has never had open heart surgery. His primary care doctor is Dr. Ervin. PMHx: As above Surgeries: Appendectomy 06/26/2023, Cholecystectomy, Tonsillectomy, Coronary angiography with stent placement, 2022 Meds:Pending Med Rec Allergies: Apparently statins Family Hx: Unsure of family history of coronary artery disease, diabetes or stroke Social Hx:Lives with , likes to write and write books. He is also a musician, plays the keyboard and sings. Denies history of recreational drug use, has never been a heavy drinker, drinks 1-2 alcoholic beverages with dinner nightly. Quit tobacco about 30 years ago. cc:: cc: Heri Matos MD Review of Systems Review of Systems Narrative Review of Systems: 12 point ROS reviewed and is otherwise negative unless stated directly in the HPI Exam Vital Signs Temp Pulse Resp BP Pulse Ox O2 Del Method 97.1 F 81 18 160/81 H 97 Room Air 03/27/25 12:00 03/27/25 12:00 03/27/25 12:00 03/27/25 12:03/27/25 12:00 03/27/25 12:00 Narrative Exam General: AAOx3, NAD, morbidly obese HEENT: Moist mucous membranes, conjunctiva clear, EOMI, PERRLA, Cardiovascular: S1, S2, radial pulses +2 bilat, RRR Pulmonary: CTAB bilat no cough, no wheezing GI: No tenderness to light or deep palpitation, no guarding, rigidity, rebound tenderness or distension Extremities: No presence of trace or pitting edema in lower extremities bilaterally, dorsalis pedis pulses +2 bilaterally Neuro: AAOx3, no focal motor or sensory deficits in the UE or LE bilat Psych: Good judgement, thought and behavior Results Labs 03/28/25 04:46 03/28/25 04:46 Labs: Short CBC 03/27/25 Range/Units 04:49 WBC 7.9 (3.8-10.6) Thou/mm3 Hgb 15.1 (13.5-16.0) g/dL Hct 44.1 (41.0-53.0) % Plt Count 185 (140-440) Thou/mm3 BMP 03/27/25 04:49 Sodium 143 Potassium 4.1 Chloride 108 H Carbon Dioxide 25.9 BUN 10 Creatinine 1.2 Glucose 101 Calcium 9.0 Liver Function 03/27/25 Range/Units 04:49 Total Bilirubin 0.8 (0.3-1.2) mg/dL AST 21 (0-34) U/L ALT 14 (10-49) U/L Alkaline Phosphatase 71 (46-116) U/L Albumin 3.7 (3.4-4.8) gm/dL Urine 03/26/25 Range/Units 18:57 Urine Color Lt-Yellow (Lt Yel-Yel) Urine Clarity Clear (Clear/Hazy) Urine pH 6.5 (5.0-7.0) Ur Specific [place] 1.023 (1.001-1.035) Urine Protein Trace (Neg - Trace) Urine Glucose (UA) Negative (Negative) Quality Measures Quality Measures none Advance care planning discussed with:: patient Medications Home Medications and Allergies Home Medications ?Medication ?Instructions ?Recorded ?Confirmed ?Type carvedilol 6.25 mg tablet 6.25 mg PO BID 11/29/1803/13 History lisinopril 20 mg tablet 20 mg PO QDAY 05/30/1903/26 History albuterol sulfate 90 mcg/actuation 2 puff inhalation Q 6HRPRN PRN 08/02/20 03/26/25 History aerosol inhaler Shortness Of Breath famotidine 10 mg tablet 20 mg PO QDAY 08/02/2003/26 History levothyroxine 150 mcg tablet 150 mcg PO QAM 09/27/20 0 03/26/25 History amlodipine 10 mg tablet 25 mg PO QDAY 12/25/2003/26 History memantine 10 mg tablet 5 mg PO DAILY 10/07/2203/26 History tamsulosin 0.4 mg capsule 0.4 mg PO QDAY 03/24/2303/13 History fluticasone propionate 50 1 spray intranasal QDAY 06/1203/26/25 History mcg/actuation nasal spray,suspension aspirin 81 mg tablet,delayed 81 mg PO QDAY 12/29/23 History release Allergies Allergy/AdvReac Type Severity Reaction Status Date / Time Gmsxyer-SZM-XyU Reductase Allergy Severe AUTOIMMUNE Verified 04/26/24 10:32 Inhibitor BLOOD TOXICITY Visit Medications Acetaminophen (Acetaminophen 325 Mg Tablet) 650 mg PO Q6H PRN PRN Reason: Fever >100.1 Stop: 04/25/25 16:43 Albuterol (Albuterol Inh 8 Gm) 2 puff INH Q6HRRT PRN PRN Reason: SHORTNESS OF BREATH Stop: 04/26/25 08:14 Aspirin (Aspirin Ec 81 Mg Tabec) 81 mg PO DAILY [facility] Stop: 04/26/25 08:59 Last Admin: 03/27/25 09:34 Dose: 81 mg Carvedilol (Carvedilol 3.125 Mg Tablet) 6.25 mg PO BIDWM LALO Stop: 04/26/25 08:59 Last Admin: 03/27/25 09:37 Dose: 6.25 mg Ezetimibe (Ezetimibe 10 Mg Tablet) 10 mg PO QDAY LALO Stop: 04/26/25 15:44 Labetalol HCl (Labetalol Inj 5 Mg/Ml Vial 20 Ml) 10 mg IVP Q2H PRN PRN Reason: sbp > 210 Stop: 03/27/25 18:22 Levothyroxine Sodium 125 mcg/ (Levothyroxine Sodium 50 mcg) 175 mcg PO ACBR LALO Stop: 04/26/25 08:29 Last Admin: 03/27/25 09:34 Dose: 175 mcg Lisinopril (Lisinopril 20 Mg Tablet) 20 mg PO QDAY [facility] Stop: 04/26/25 08:59 Last Admin: 03/27/25 09:35 Dose: 20 mg Memantine (Memantine Hcl 5 Mg Tablet) 5 mg PO DAILY [facility] Stop: 04/26/25 08:59 Last Admin: 03/27/25 09:35 Dose: 5 mg Ondansetron HCl (Ondansetron Inj 2 Mg/Ml Inj 2 Ml) 4 mg IVP Q4HR PRN PRN Reason: NAUSEA OR VOMITING Stop: 04/25/25 13:38 Sennosides (Senna Tablet) 1 tab PO QDAY PRN; Protocol PRN Reason: constipation Stop: 04/25/25 16:43 Tamsulosin HCl (Tamsulosin Hcl 0.4 Mg Capsule) 0.4 mg PO QDAY [facility] Stop: 04/26/25 08:59 Last Admin: 03/27/25 09:34 Dose: 0.4 mg Discontinued Medications Clopidogrel Bisulfate (Clopidogrel Bisulfate 75 Mg Tablet) 75 mg PO DAILY [facility] Stop: 04/26/25 08:59 Labetalol HCl (Labetalol Inj 5 Mg/Ml Vial 20 Ml) 10 mg IVP X1 PRN PRN Reason: sbp > 210 Stop: 04/25/25 16:55 Levothyroxine Sodium (Levothyroxine Sodium 25 Mcg Tablet) 150 mcg PO QAM [facility] Stop: 04/26/25 08:59 Assessment & Plan Plan Assessment: 79 yom with a h/o htn, prior cva, and poor adherance to medication presents with 1-2 minutes of complete aphasia and right sided arm weakness who was admitted for stroke workup and to rule out seizure activity. #High risk TIA #Right arm paralysis, resolved #Expressive aphasia, resolved Patient presenting with transient expressive aphasia and right arm paralysis that lasted 1-2 minutes with complete resolution. Has had recurrent episodes mild aphasia in the past that would resolve on their own, but today was the worst one. Inconsistently takes his aspirin 81 mg but took a 325 loading dose prior to coming to the ED today. Imaging studies were negative and labs were unremarkable. This is likely a TIA, but seizure should be ruled out due to episodic nature of the aphasia and history of prior CVA. MRA/MRI findings were discussed with neurology, will not pursue CTA of the head and neck at this time given the patient remains clinically stable and is at his baseline. Although this patient has TIA, however this high risk due to his symptoms and his past medical history, will initiate DAPT patient will require aspirin indefinitely MRI negative for acute infarct, LVO, mass effect, midline shift, hemorrhage Plan: ? Speech therapy ? Echo ? Neurochecks every 4 hours ? Head of bed elevation 30 degrees ? DVT prophylaxis ? DAPT ? Will consider high intensity statin ? Consider Repatha outpatient #HTN #HLD #CAD status post PCI 3x Above handled by primary hospitalist Patient seen and care discussed with my attending physician, Dr. Brian Cox, PGY-2 Attending Provider Attestation/Addendum I personally have seen and examined the patient at the bedside and agreed with the resident's findings, assessment and plan of care. Reassurance given to the patient regarding the negative MRI brain for acute stroke, will follow-up with echocardiogram report. Patient is agreeable to trying statin again for hyperlipidemia for secondary prevention of TIA along with dual antiplatelet agent for 21 days followed by aspirin alone. Patient is neurologically afocal and has not had any recurrent episodes after admission.
[2025-03-27] MEDS: EZETIMIBE 10 MG TABLET PO (17:47)
[2025-03-27] MEDS: CLOPIDOGREL BISULFATE 75 MG TABLET PO (20:58)
--- NOTE | 2025-03-27 22:39 | PC.NURSE ---
Notified Dr Hernandez of patient having 4 beats of PVC's with SB at 53 bpm, patient remains asymptomatic, okayed, no new orders, care continued.
[2025-03-28] VITALS (7 sets, daily range): BP systolic 131–150; BP diastolic 77–88; PULSE 54–89; RESP 14–99; TEMP 36–37.1; O2SAT 94–99; BMI 35.4
[2025-03-28 05:19] LABS: Basophils # (Auto) 0.1 Thou/mm3 (0.0-0.2); Basophils % (Auto) 1 % (0-2.5); Eosinophils # (Auto) 0.5 Thou/mm3 (0.0-0.5); Eosinophils % (Auto) 6 % (0-10); Hematocrit 44.8 % (41.0-53.0); Hemoglobin 15.2 g/dL (13.5-16.0); Immature Granulocytes Auto 0.01 Thou/mm3 (0.00-0.00); Lymphocytes # (Auto) 1.7 Thou/mm3 (1.0-4.8); Lymphocytes % (Auto) 22 % (10-50); Mean Corpuscular HGB Conc 33.9 g/dl (31.0-37.0); Mean Corpuscular Hemoglobin 32.5 pg (25.0-35.0); Mean Corpuscular Volume 96 fL (80-100); Monocytes # (Auto) 0.8 Thou/mm3 (0.0-0.8); Monocytes % (Auto) 11 % (0-12); Neutrophils # (Auto) 4.7 Thou/mm3 (1.8-7.7); Neutrophils % (Auto) 61 % (37-80); Nucleated Red Blood Cell # 0.00 Thou/mm3 (0.00-0.00); Nucleated Red Blood Cell % 0 /100 WBC (0); Platelet Count 188 Thou/mm3 (140-440); RDW Standard Deviation 47.8 fL (35.1-43.9); Red Blood Count 4.67 Miln/mm3 (4.50-5.90); White Blood Count 7.7 Thou/mm3 (3.8-10.6)
[2025-03-28] MEDS: LEVOTHYROXINE SODIUM 125 MCG, LEVOTHYROXINE SODIUM 50 MCG 175 MCG PO (05:25)
[2025-03-28 05:46] LABS: Alanine Aminotransferase 13 U/L (10-49); Albumin, Serum 3.7 gm/dL (3.4-4.8); Albumin/Globulin Ratio 1.3 (1.2-2.2); Alkaline Phosphatase 71 U/L (46-116); Anion Gap 9 (7-16); Aspartate Amino Transferase 24 U/L (0-34); BUN/Creatinine Ratio 8 Ratio (12-20); Bilirubin,Total 0.7 mg/dL (0.3-1.2); Blood Urea Nitrogen 11 mg/dL (9-23); Calcium 9.1 mg/dL (8.3-10.6); Calcium (Corrected) 9.3 mg/dL (8.5-10.1); Carbon Dioxide 25.2 mMol/L (20.0-31.0); Chloride 107 mMol/L (98-107); Creatinine (Component) 1.3 mg/dL (0.6-1.3); Estimated Creatinine Clearance 56.9 mL/min (>60); Globulin 2.8 gm/dL (2.3-3.5); Glucose 99 mg/dL (74-106); Osmolality,Calculated 280 (275-295); Potassium 3.8 mMol/L (3.4-5.1); Sodium 141 mMol/L (136-145); Total Protein 6.5 gm/dL (5.7-8.2); eGFR 56 See Note
--- NOTE | 2025-03-28 08:50 | PC.SS ---
BIT SHARPENER conducted bedside contact with the patient conduct initial assessment and to discuss discharge planning.? Patient confirmed demographic information.? Patient resides at home with spouse, Philly Gonzalez .? Patient does not utilize any form of DME to assist with ambulation.? Patient does not utilize home oxygen.? Patient describes the ability to complete ADL?s independently.? Patient identified spouse, Philly Gonzalez; as medical surrogate decision maker.? Patient?s PCP is Tiesha Baker.? Patient?s wedding coordinator is Dr. Felton.? Patient?s neurologist is Dr. Gray.? Patient does not participate with dialysis.? Plan is for the patient to return home at the time of discharge.? Family will provide transportation on behalf of the patient.? No further discharge needs identified by the patient.? No further intervention required at this time, social services specialist will be available to address any further concerns.? Next of Kin: Philly Gonzalez D/C Plan: Home
[2025-03-28] MEDS: CLOPIDOGREL BISULFATE 75 MG TABLET PO (09:32)
[2025-03-28] MEDS: ASPIRIN EC 81 MG TABEC PO (09:32)
[2025-03-28] MEDS: TAMSULOSIN HCL 0.4 MG CAPSULE PO (09:32)
[2025-03-28] MEDS: EZETIMIBE 10 MG TABLET PO (09:33)
[2025-03-28] MEDS: MEMANTINE HCL 5 MG TABLET PO (09:33)
--- NOTE | 2025-03-28 09:53 | ESDS_ITS ---
<Statement entered by Heri Matos MD - 04/03/25 09:12> I reviewed above note and agree with findings and plans. I have also personally examined the patient with medicine team and went over assessment and plan with medical team including fashion styling intern and resident physician. <Statement entered by Renetta Torres MD - 03/29/25 15:57> I discussed with and supervised the fashion styling intern physician who took care of this patient. I personally saw and examined the patient and discussed the assessment and plan with the entire medicine team, including my attending Dr. Matos, I agree with most of the assessment and plan as documented below Renetta Torres M.D. PGY-3 Planned Discharge Date 03/28/25 DS: Providers Provider Date of admission: 03/26/25 16:44 Primary care physician: Bharath Ervin MD Admitting Provider: Nael Palacios DO Attending Provider on Admission: Heri Matos MD Consults: 03/26/25 13:39 Consult to Neurology / Tele-Neurology Routine Comment: Consulting Provider: [facility] 03/26/25 16:51 Consult to Neurology / Tele-Neurology Routine Comment: Stroke workup Consulting Provider: Dimitri oTrres Referral Physical Therapy Routine Comment: Stroke workup Physician Instructions: 03/26/25 16:52 Referral Speech Therapy Routine Comment: NPO pending swallow eval for stroke workup Attending Provider on DC: Heri Matos MD Discharging Provider: Heri Matos MD DS: Diagnosis Problem List Completed Was Problem List Reviewed/Reconciled?: Yes Hospital Course Hospital Course Hospital course: Patient is 79 yr male with PMH of CVA, CAD s/p 3 stents, BPH, HTN, HLD, asthma, prostate adenocarcinoma who presented to [facility] on 03/26/25 due to expressive aphasia and right are weakness. Onset was about 1hr before coming to hospital and lasted for 1-2 minutes. Patient has aphasia episodes every 3 weeks but resolve quickly. Duration was longer this time which promted the ED visit. States that he is intermittently adherent with aspirin therapy. He has a hard timing remembering. When symptoms started at home, he took load dose. BP at home read 200/105. Negative CT Head in the ED, EKG did not show a-fib. Aspirin 81 mg started per tele neuro recommendations. 9/15: Passed Swallow evaluation last night, started on regular diet. MRA showed no filling of the left middle cerebral artery branches but not with expected ischemic change on MRI that would corroborate this finding. Radiology recommending follow up CTA to verify this vascular finding. Patient was at his normal baseline without any significant deficits. Neurology felt CTA was unnecessary and that this was likely a spurious vs chronic finding given the lack of edema seen on MRI and asymptomatic patient. Given the transient yet focal nature of the patient's symptoms, TIA vs recrudescnece was favored. Patient was started on plavix and ezitimibe. 03/28: ECHO results did not show evidence of embolic disease. EF 65% with normal RV and LV function. Trace MR. Given the transient yet focal nature of the patient's symptoms, TIA vs recrudescnece was favored. Patient was subsequently discharged in stable condition. Patient's plan and care discussed with my attending, MD Ck Reid, PGY-1 ([facility] Resident) Discharge Recommendations: -Continue plavix for 21 days. -Continue aspirin indefinitely. -F/U with neurology and PCP, -F/U with cardiology to see if pt qualifies for evolocumab for HLD control. -Continue Ezetimibe Discharge Diagnoses: #TIA vs Recrudescence #HLD #HTN Time Spent with Patient Time attestation: Total time spent providing and/or coordinating discharge services: Time spent: Greater than 30 minutes Exam Vital Signs Temp Pulse Resp BP Pulse Ox O2 Del Method 97.2 F 89 16 140/88 H 95 Room Air 03/28/25 08:00 03/28/25 09:33 03/28/25 08:00 03/28/25 09:33 03/28/25 08:00 03/28/25 08:00 Narrative Exam General: Patient seen walking around the unit, pleasant, appears well, no acute distress HEENT: No JVD noted. Mucosa moist. Pupils are equal and reactive to light bilaterally Cardiovascular: Normal S1 and S2. Regular rate and rhythm. No murmur appreciated Respiratory: Clear to auscultation bilaterally without wheezes or crackles. Abdomen: Soft, nontender, not distended, Skin: Dry, no rashes or bruising Musculoskeletal: No gross injuries. Able to move all 4 extremities. Non edematous lower extremities. Neuro: Alert and oriented x3. CN III-XII grossly intact. B/L upper and lower extremities with intact strength and sensation. Patient walking without difficulty. Psych: Normal affect and mood, in good spirits. Discharge Plan Plan Patient Disposition: HOME (Self Care) Prescriptions/Referrals Prescriptions/Med Rec: New clopidogrel 75 mg Tablet 75 mg PO QDAY 21 Days Qty: 21 0RF ezetimibe [Zetia] 10 mg tablet 10 mg PO QDAY Qty: 30 0RF Continued carvedilol 6.25 mg tablet 6.25 mg PO BID lisinopril 20 mg tablet 20 mg PO QDAY tamsulosin 0.4 mg capsule 0.4 mg PO QDAY aspirin 81 mg tablet,delayed release (DR/EC) 81 mg PO QDAY albuterol sulfate 90 mcg/actuation HFA aerosol inhaler 2 puff INHALATION [id number] PRN (Reason: Shortness Of Breath) Patient Comments: inhale 1 puff by mouth and INTO THE LUNGS every 4 hours if needed levothyroxine 150 mcg tablet 150 mcg PO QAM Patient Comments: take 1 tablet by mouth every morning ON AN EMPTY STOMACH memantine 10 mg tablet 5 mg PO DAILY fluticasone propionate 50 mcg/actuation [place],Suspension 1 spray INTRANASAL QDAY Rx Instructions: administer into each nostril Discontinued famotidine 10 mg Tablet 20 mg PO QDAY amlodipine 10 mg Tablet 25 mg PO QDAY Referrals: Silas Stafford MD [Physician, Cardiology] Bharath Ervin MD [Primary Care Provider, Family Practice] Dimitri Torres MD [Physician, Neurology] Patient/Caregiver Discharge Instructions Other Discharge Diet Instructions: Start taking Zetia 10mg daily as management for secondary prevention of TIA Start taking Aspirin 81mg and Plavix 75mg daily for 21 days, followed by Aspirin alone daily for stroke prevention. Resume previous medications. Follow up with neurology in 1-2 weeks Please follow up with cardiology to see if you can qualify for receiving LEQVIO shot for your uncontrolled hyperlipidemia as you have a strong reaction to statin. Follow up with your echo results Follow up with PCP in 1-2 weeks. If you do not have PCP, call [facility] at [phone] for appointments on Wednesdays or Fridays 1-4PM Education Materials: Stroke: Self-Care, Stroke Self Care After, Stroke Prevent Another Caregiver, Stroke Prevention Activity Print Language: Macedonian Stand Alone Forms: Marylu Award Info., Patient Portal Info Letter Discharge Order Discharge Orders: Discharge (Routine); Ordered 03/28/25 Ordered By: Renetta Torres Quality Discharge Quality Measures VTE prophylaxis
== END 2025-03-28 11:56 | disposition home or self-care (01) | DRG 69 ==
LOC: SERX 17:03 → SERHOLD 17:05 → S2NX 19:55
PROVIDERS: Registered Nurse General Practice; Admitting Provider Student in an Organized Health Care Education/Training Program; Emergency Provider Emergency Medicine; PCP Family Medicine; Visit Provider Internal Medicine
DX: G45.9 Transient cerebral ischemic attack, unspecified (principal); E78.5 Hyperlipidemia, unspecified; R53.1 Weakness; I25.10 Atherosclerotic heart disease of native coronary artery without angina pectoris; N40.0 Benign prostatic hyperplasia without lower urinary tract symptoms; I10 Essential (primary) hypertension; J45.909 Unspecified asthma, uncomplicated; C61 Malignant neoplasm of prostate; Z66 Do not resuscitate; Z79.82 Long term (current) use of aspirin; Z79.890 Hormone replacement therapy; Z79.899 Other long term (current) drug therapy; Z87.891 Personal history of nicotine dependence; Z90.49 Acquired absence of other specified parts of digestive tract; Z95.5 Presence of coronary angioplasty implant and graft; I69.320 Aphasia following cerebral infarction
CPT/HCPCS: 36415; 70450; 70544; 71045; 80053; 80061; 80307; 81001; 83735; 84100; 84443; 84484; 84703; 85025; 85610; 85730; 92610; 93005; 93306; 97161; 99284; A9270

== ENCOUNTER → 2025-04-17 | Outpatient (CLI) | payer MEDICARE, OTHER, SELFPAY ==
[2025-04-17 13:44] LABS: Prostate Specific Antigen 8.89 ng/mL (0-4.00)
== END | disposition home or self-care (01) ==
LOC: COPL 12:32
PROVIDERS: PCP Family Medicine; Referring Provider Physician Assistant; Visit Provider Physician Assistant
DX: C61 Malignant neoplasm of prostate (principal)
CPT/HCPCS: 36415; 84153

== ENCOUNTER → 2025-04-25 | Outpatient (BNVA) | payer MEDICARE, OTHER, SELFPAY | END | disposition home or self-care (01) | PROVIDERS: PCP Family Medicine; Referring Provider Family Medicine; Visit Provider Urology | DX: C61 Malignant neoplasm of prostate (principal); I10 Essential (primary) hypertension; E66.9 Obesity, unspecified; Z71.3 Dietary counseling and surveillance; Z68.36 Body mass index [BMI] 36.0-36.9, adult | CPT/HCPCS: 81003; 99212; G0463 ==